=== PATIENT | male | born 1975 | race Two or more races ===

== ENCOUNTER 2024-06-25 04:16 | Inpatient (IN) | payer OTHER ==
[~2024-06-25] VITALS: Ht 193 cm; Wt 83.0 kg
[2024-06-25] MEDS ORDERED: VANCOMYCIN PER PHARMACY 0 MG IV SCH ×2 (04:45→06:45)
[2024-06-25] MEDS: ceFAZolin 1GM/50ML 50 ML IV ONE (04:45)
[2024-06-25] MEDS: SODIUM CHLORIDE 0.9% 1,000 ML IVB ONE (04:45)
--- NOTE | 2024-06-25 05:10 | DVH ---
CLINICAL INDICATION: pain / swelling TECHNIQUE: XY L FOOT 2 VIEW XRAY Comparison: None FINDINGS/IMPRESSION: : There is no evidence of acute fracture or dislocation. Soft tissues are unremarkable.
--- NOTE | 2024-06-25 05:14 | ED.PDOC ---
Musculoskeletal HPI Comments 48-year-old male came to emergency room for left foot swelling. Patient has history of diabetes, status post left knee surgery 2023. Since the surgery, he has been episodes of left foot swelling which spontaneously resolves. Yesterday, left foot swelling again, now with discoloration. Noted also non healing wound at the sole of his left foot. Swelling and pain would persist prompting check up. No fever noted. Chief Complaint: Lower Extremity Time Seen by MD: 05:13 Reviewed Notes: Nurses Notes Allergies: Coded Allergies: NO KNOWN ALLERGIES (Unverified , 06/25/24) Information Source: Patient Mode of Arrival: Ambulatory Location: Left Extremity Location: Foot Timing: Days Prehospital treatment: None Severity: Moderate Able to Move Extremity: Yes Bear Weight: Limited Pain: Moderate Hand Dominance: Right Mechanism: Spontaneous Circumstances: Spontaneous Onset of Symptoms: Spontaneous Symptoms: Swelling, Pain Associated signs and symptoms: Foot pain (left) Past Medical History PAST MEDICAL HISTORY: DM Surgical History (Other): Left knee surgery 2023 Family History Family History: Reviewed,noncontributory to illness Social History Smoker: Non-Smoker Alcohol: Denies ETOH Use Drugs: Denies Drug Use Lives In: Home Constitutional: denies: chills, diaphoresis, fatigue, fever, malaise, sweats, weakness, others EENTM: denies: blurred vision, double vision, ear bleeding, ear discharge, ear drainage, ear pain, ear ringing, eye pain, eye redness, hearing loss, mouth pain, mouth swelling, nasal discharge, nose bleeding, nose congestion, nose pain, photophobia, tearing, throat pain, throat swelling, voice changes, others Respiratory: denies: cough, hemoptysis, orthopnea, SOB at rest, shortness of breath, SOB with excertion, stridor, wheezing, others Cardiovascular: denies: chest pain, dizzy spells, diaphoresis, Dyspnea on exertion, edema, irregular heart beat, left arm pain, lightheadedness, palpitations, PND, syncope, others Gastrointestinal: denies: abdomen distended, abdominal pain, blood streaked bowels, constipated, diarrhea, dysphagia, difficulty swallowing, hematemesis, melena, nausea, poor appetite, poor fluid intake, rectal bleeding, rectal pain, vomiting, others Genitourinary: denies: burning, dysuria, flank pain, frequency, hematuria, incontinence, penile discharge, penile sore, pain, testicle pain, testicle swelling, urgency, others Neurological: denies: dizziness, fainting, headache, left sided numbness, left sided weakness, numbness, paresthesia, pre-existing deficit, right sided numbness, right sided weakness, seizure, speech problems, tingling, tremors, weakness, others Musculoskeletal: reports: others (Left foot swelling) Integumetry: reports: wounds (Sole of left foot); denies: bruises, change in color, change in hair/nails, dryness, laceration, lesions, lumps, rash, others Allergic/Immunocompromised: denies: Difficulty Healing, Frequent Infections, Hives, Itching, others Hematologic/Lymphatic: denies: anemia, blood clots, easy bleeding, easy bruising, swollen glands, others Endocrine: denies: excessive hunger, excessive sweating, excessive thirst, excessive urination, flushing, intolerance to cold, intolerance to heat, unexplained weight gain, unexplained weight loss, others Psychiatric: denies: anxiety, bipolar disorder, depression, hopeless, panic disorder, schizophrenia, sleepless, suicidal, others Physical Exam General Appearance: No Apparent Distress, Normal HEENT: Normal ENT Inspection, Pharynx Normal, TMs Normal Neck: Full Range of Motion, Non-Tender, Normal, Normal Inspection Respiratory: Chest Non-Tender, Lungs Clear, No Accessory Muscle Use, No Respiratory Distress, Normal Breath Sounds Cardiovascular: No Edema, No JVD, No Murmur, No Gallop, Normal Peripheral Pulses, Regular Rate/Rhythm Breast Exam: Deferred Gastrointestinal: No Organomegaly, Non Tender, No Pulsatile Mass, Normal Bowel Sounds, Soft Genitalia: Deferred Pelvic: Deferred Rectal: Deferred Extremities: No calf tenderness, Normal capillary refill, Normal inspection, Normal range of motion, Non-tender, No pedal edema Musculoskeletal : Apperance: Normal Neurologic: Alert, web pressman II-XII nml as Tested, No Motor Deficits, Normal Affect, Normal Mood, No Sensory Deficits Cerebellar Function: Normal Reflexes: Normal Skin: Dry, Normal Color, Warm Lymphatic: No Adenopathy Was a procedure done? Was a procedure done?: No Differential Diagnosis EXT Differential Diagnosis: Cellulitis, CHF, Deep Vein Thrombosis, Septic, Other (Diabetic foot) X-Ray, Labs, Meds, VS Vital Signs Date Time Temp Pulse Resp B/P (MAP) Pulse Ox O2 Delivery O2 Flow Rate FiO2 06/25/24 04:34 140 06/25/24 04:24 99.6 147 20 128/93 (105) 97 Lab Test 06/25/24 04:50 Range/Units White Blood Count 22.6 H 4.4-10.8 10^3/uL Red Blood Count 4.05 L 4.5-5.90 10^6/uL Hemoglobin 11.5 L 13.5-17.5 g/dL Hematocrit 34.1 L 41.0-53.0 % Mean Corpuscular Volume 84.1 80.0-100.0 fL Mean Corpuscular Hemoglobin 28.4 28.0-32.0 pg Mean Corpuscular Hemoglobin Concent 33.8 32.0-36.0 g/dL Red Cell Distribution Width 13.1 11.8-14.3 % Platelet Count 594 H 140-450 10^3/uL Mean Platelet Volume 7.4 6.9-10.8 fL Neutrophils (%) (Auto) 81.6 H 37.0-80.0 % Lymphocytes (%) (Auto) 9.1 L 10.0-50.0 % Monocytes (%) (Auto) 8.1 0.0-12.0 % Eosinophils (%) (Auto) 0.6 0.0-7.0 % Basophils (%) (Auto) 0.6 0.0-2.0 % Neutrophils # (Auto) 18.4 H 1.6-8.6 10 ^3/uL Lymphocytes # (Auto) 2.0 0.4-5.4 10 ^3/uL Monocytes # (Auto) 1.8 H 0-1.3 10 ^3/uL Eosinophils # (Auto) 0.1 0-0.8 10 ^3/uL Basophils # (Auto) 0.1 0-0.2 10 ^3/uL Nucleated Red Blood Cells 0.0 % Prothrombin Time Pending Prothrombin Time INR Pending Activated Partial Thromboplast Time Pending D-Dimer, Quantitative Pending Sodium Level Pending Potassium Level Pending Chloride Level Pending Carbon Dioxide Level Pending Anion Gap Pending Blood Urea Nitrogen Pending Creatinine Pending Glomerular Filtration Rate Calc Pending BUN/Creatinine Ratio Pending Serum Glucose Pending Lactic Acid Level Pending Calcium Level Pending Total Bilirubin Pending Aspartate Amino Transferase (AST) Pending Alanine Aminotransferase (ALT) Pending Alkaline Phosphatase Pending Total Protein Pending Albumin Pending Time of 1ST Reevaluation: 05:05 Reevaluation 1ST: Unchanged Time of 2ND Reevaluation: 05:35 Reevaluation 2ND: Unchanged Patient Education/Counseling: Diagnosis, Treatment Family Education/Counseling: No Family Present Departure 1 Departure Time of Disposition: 05:35 Impression: Primary Impression: Cellulitis of left foot Additional Impressions: Diabetic foot ulcer Type 2 diabetes mellitus Disposition: 09 ADMITTED INPATIENT Condition: Guarded Discharged With: Self Comments Left Lower Extremity Cellulitis with Diabetic Foot Ulcer Chief Complaint: Left foot and lower leg redness and swelling History of Present Illness: 48-year-old male with history of type 2 diabetes presents with worsening left foot and lower leg redness and swelling for the past 4 days. Patient reports having a diabetic foot ulcer on the sole of his left foot for approximately 2 months prior to the onset of current symptoms. The affected area has become progressively more swollen and erythematous. Physical Exam: Left foot and lower leg with erythema and swelling Diabetic ulcer present on sole of left foot Lab Results: WBC: 22.6 (Elevated) Hemoglobin: 11.5 Hematocrit: 34.1 Platelets: 594 Imaging and Other Relevant Results: X-ray Left Foot/Lower Leg: - Soft tissue swelling noted - No bony lesions or evidence of osteomyelitis Left Lower Extremity Ultrasound: - Pending at time of note completion - ordered to rule out DVT Medical Decision Making: Summary Statement: 48-year-old diabetic male presenting with left lower extremity cellulitis and underlying diabetic foot ulcer, with significantly elevated WBC concerning for severe infection. Problem List: 1. Left lower extremity cellulitis 2. Diabetic foot ulcer 3. Type 2 Diabetes Mellitus 4. Leukocytosis Differential Diagnosis: Cellulitis, Deep Vein Thrombosis, Osteomyelitis, Necrotizing Fasciitis, Infected Diabetic Foot Ulcer ED Course: Patient received IV fluids, IV Cefazolin and Vancomycin. Left lower extremity ultrasound ordered to rule out DVT. Decision made to admit for IV antibiotics and further management. Assessment and Plan: 1. Left Lower Extremity Cellulitis with Diabetic Foot Ulcer - Admit to hospital for IV antibiotics (Cefazolin and Vancomycin initiated in ED) - Monitor response to treatment - Wound care consultation - DVT ultrasound results pending 2. Type 2 Diabetes Mellitus - Continue home medications - Blood glucose monitoring during admission - Endocrinology consultation recommended Billing Information: ICD-10: L03.115 - Cellulitis of left lower limb ICD-10: E11.621 - Type 2 diabetes mellitus with foot ulcer ICD-10: E11.9 - Type 2 diabetes mellitus without complications Critical Care Note Critical Care Time?: Yes (35 min-critical care time only) Critical care comment: Total critical care time: Approximately 36 minutes Due to a high probability of clinically significant, life threatening deterioration, the patient required my highest level of preparedness to intervene emergently and I personally spent this critical care time directly and personally managing the patient. This critical care time included obtaining a history; examining the patient; pulse oximetry; ordering and review of studies; arranging urgent treatment with development of a management plan; evaluation of patient's response to treatment; frequent reassessment; and, discussions with other providers. This critical care time was performed to assess and manage the high probability of imminent, life-threatening deterioration that could result in multi-organ failure. It was exclusive of separately billable procedures and treating other patients. Stability Stability form required: No Heart Score Heart Score: Heart Score Response (Comments) Value History N/A 0 EKG N/A 0 Age N/A 0 Risk Factors N/A 0 Troponin N/A 0 Total 0 I personally scribed for EUNICE WASHINGTON MD ([email or web address]) on 06/25/24 at 05:14. Electronically submitted by David Mckinney ([facility]). EUNICE WASHINGTON MD Jun 25, 2024 05:14
--- NOTE | 2024-06-25 05:14 | DVH ---
EXAM: XR Left Tibia and Fibula, 2 Views CLINICAL INDICATION: pain / swelling TECHNIQUE: Frontal and lateral views of the left tibia and fibula. COMPARISON: None FINDINGS: BONES/JOINTS: See below. SOFT TISSUES: Soft tissue swelling without acute fracture. No radiopaque foreign body. OTHER FINDINGS: . IMPRESSION: 1. Soft tissue swelling without acute fracture. 2. If symptoms persist, further evaluation with CT is recommended.
[2024-06-25 05:15] LABS: Basophils # (auto) 0.1 10 ^3/uL (0-0.2); Eosinophils # (auto) 0.1 10 ^3/uL (0-0.8); Hemoglobin 11.5 g/dL (13.5-17.5)
[2024-06-25 05:18] LABS: Basophils % (auto) 0.6 % (0.0-2.0); Eosinophils % (auto) 0.6 % (0.0-7.0); Hematocrit 34.1 % (41.0-53.0); Lymphocytes % (auto) 9.1 % (10.0-50.0); Mean Corpuscular Hemoglobin 28.4 pg (28.0-32.0); Mean Corpuscular Hgb Conc. 33.8 g/dL (32.0-36.0); Mean Corpuscular Volume 84.1 fL (80.0-100.0); Monocytes # (auto) 1.8 10 ^3/uL (0-1.3); Monocytes % (auto) 8.1 % (0.0-12.0); Neutrophils # (auto) 18.4 10 ^3/uL (1.6-8.6); Neutrophils % (auto) 81.6 % (37.0-80.0); Platelet Count (auto) 594 10^3/uL (140-450); Red Blood Cells 4.05 10^6/uL (4.5-5.90); Red Cell Distribution Width 13.1 % (11.8-14.3); White Blood Cell 22.6 10^3/uL (4.4-10.8)
[2024-06-25 05:20] VITALS: PULSE 123; RESP 18; O2SAT 98
[2024-06-25 05:27] LABS: Alanine Aminotransferase 17 U/L (7-40); Albumin 4.4 g/dL (3.2-4.8); Anion Gap 13 (5-15); Aspartate Aminotransferase 13 U/L (13-40); BUN/Creatinine Ratio 10.7 (10.0-20.0); Bilirubin, Total 0.6 mg/dL (0.2-1.0); Calcium 9.9 mg/dL (8.7-10.4); Carbon Dioxide 25 mmol/L (20-31); Total Protein 7.6 g/dL (5.7-8.2)
[2024-06-25 05:42] LABS: Alkaline Phosphatase 126 U/L (46-116); Blood Urea Nitrogen 9 mg/dL (9-23); Chloride 94 mmol/L (98-107); Glucose 334 mg/dL (74-106); Potassium 3.2 mmol/L (3.5-5.1); Sodium 132 mmol/L (136-145)
[2024-06-25 05:44] LABS: INR 1.13 (0.9-1.15); Partial Thromboplastin Time 31.2 SEC (24.5-34.5); Prothrombin Time 11.8 sec (9.3-11.8)
[2024-06-25] MEDS ORDERED: HYDROcodone-ACET 5/325MG TAB PO PRN (06:45)
[2024-06-25] MEDS ORDERED: DEXTROSE (50%) 50ML SYRG IV PRN (06:45)
[2024-06-25] MEDS ORDERED: ONDANSETRON HCL 4 MG/2 ML VIAL IV PRN (06:45)
[2024-06-25] MEDS ORDERED: MORPHINE SULFATE INJ 2 MG/ml SYRG IV PRN (06:45)
[2024-06-25] MEDS ORDERED: ACETAMINOPHEN 325 MG TAB PO PRN (06:45)
--- NOTE | 2024-06-25 06:51 | DVH ---
EXAM: US Duplex Left Lower Extremity Veins CLINICAL INDICATION: LLE pain / swelling TECHNIQUE: Real-time duplex ultrasound scan of the left lower extremity veins integrating B-mode two -dimensional vascular structure, Doppler spectral analysis, color flow Doppler imaging and compressio n. COMPARISON: None FINDINGS: DEEP VEINS: Unremarkable. No DVT in the visualized common femoral, femoral, proximal deep femoral or popliteal veins. The veins demonstrate normal color flow, are normally compressible, with normal phasic flow and/or augmentation response. SUPERFICIAL VEINS: Unremarkable. No thrombus in the visualized great saphenous vein. SOFT TISSUES: No acute findings. No popliteal cyst. OTHER FINDINGS: . None. Small left knee joint effusion. IMPRESSION: No DVT.
--- NOTE | 2024-06-25 07:10 | DVHHP2 ---
History of Present Illness Reason for Visit: Left lower Extremity pain and swelling History of Present Illness Tyshawn Leong is a 48-year-old male with past medical history of hyperlipidemia, diabetes, and left knee surgery back in 2023 who presents to the ED with left lower extremity pain and swelling. Patient reports 2 flare-ups when in March of 2024 and 1 currently states that the pain is 10/10 stabbing and burning and is constant. Patient reports that he uses a cane or crutches to ambulate. He also states that he had a referral for Podiatry but has not seen 1 yet for his left ulcer on the sole of his foot. Patient denies any chest pain, shortness of breath, fever, chills, lightheadedness, weakness, dizziness, abdominal pain, nausea, vomiting, and diarrhea Cardiovascular: hyperipidemia Endocrine: Diabetes Past Surgical History: Other (A surgery 2023) Family History: None Smoke: No ALCOHOL: none Drugs: None Lives: with Family Domestic Violence: Neg Review of Systems Constitutional: Yes: Fever Musculoskeletal: leg pain Skin: Other (Erythematous and swelling left lower extremity) Allergies: Coded Allergies: NO KNOWN ALLERGIES (Unverified , 06/25/24) Medications Current Medications Medications Dose Ordered Sig/Padmini Route Start Time Stop Time Status Last Admin Dose Admin Vancomycin HCl 0 ml @ 0 mls/hr UD IV 06/25/24 04:45 UNV Exam Vital Signs Vital Signs Date Time Temp Pulse Resp B/P (MAP) Pulse Ox O2 Delivery O2 Flow Rate FiO2 06/25/24 05:20 123 18 98 Room Air* 0 21 06/25/24 05:15 98.1 164/100 (121) 98.1 General Appearance: Alert, Oriented X3, Cooperative, No acute distress HEENT: Atraumatic, PERRLA, EOMI, Mucous membr. moist/pink Respiratory: Clear to auscultation, Normal air movement Cardiovascular: Normal S1, Normal S2, No murmurs Abdominal: Normal bowel sounds, Soft, No tenderness, No hepatospenomegaly, No masses Neuro: Normal gait, Sensation intact Psych/Mental Status: Mental status NL, Mood NL Labs/Xrays Labs Test 06/25/24 04:50 Range/Units White Blood Count 22.6 H 4.4-10.8 10^3/uL Red Blood Count 4.05 L 4.5-5.90 10^6/uL Hemoglobin 11.5 L 13.5-17.5 g/dL Hematocrit 34.1 L 41.0-53.0 % Mean Corpuscular Volume 84.1 80.0-100.0 fL Mean Corpuscular Hemoglobin 28.4 28.0-32.0 pg Mean Corpuscular Hemoglobin Concent 33.8 32.0-36.0 g/dL Red Cell Distribution Width 13.1 11.8-14.3 % Platelet Count 594 H 140-450 10^3/uL Mean Platelet Volume 7.4 6.9-10.8 fL Neutrophils (%) (Auto) 81.6 H 37.0-80.0 % Lymphocytes (%) (Auto) 9.1 L 10.0-50.0 % Monocytes (%) (Auto) 8.1 0.0-12.0 % Eosinophils (%) (Auto) 0.6 0.0-7.0 % Basophils (%) (Auto) 0.6 0.0-2.0 % Neutrophils # (Auto) 18.4 H 1.6-8.6 10 ^3/uL Lymphocytes # (Auto) 2.0 0.4-5.4 10 ^3/uL Monocytes # (Auto) 1.8 H 0-1.3 10 ^3/uL Eosinophils # (Auto) 0.1 0-0.8 10 ^3/uL Basophils # (Auto) 0.1 0-0.2 10 ^3/uL Nucleated Red Blood Cells 0.0 % Prothrombin Time 11.8 9.3-11.8 sec Prothrombin Time INR 1.13 0.9-1.15 Activated Partial Thromboplast Time 31.2 24.5-34.5 SEC D-Dimer, Quantitative 2.25 H 0.0-0.49 mg/L FEU Sodium Level 132 L 136-145 mmol/L Potassium Level 3.2 L 3.5-5.1 mmol/L Chloride Level 94 L 98-107 mmol/L Carbon Dioxide Level 25 20-31 mmol/L Anion Gap 13 5-15 Blood Urea Nitrogen 9 9-23 mg/dL Creatinine 0.84 0.700-1.30 mg/dL Glomerular Filtration Rate Calc 109 >90 mL/min BUN/Creatinine Ratio 10.7 10.0-20.0 Serum Glucose 334 H 74-106 mg/dL Lactic Acid Level 1.4 0.4-2.0 mmol/L Calcium Level 9.9 8.7-10.4 mg/dL Total Bilirubin 0.6 0.2-1.0 mg/dL Aspartate Amino Transferase (AST) 13 13-40 U/L Alanine Aminotransferase (ALT) 17 7-40 U/L Alkaline Phosphatase 126 H 46-116 U/L Total Protein 7.6 5.7-8.2 g/dL Albumin 4.4 3.2-4.8 g/dL INDICATION: R/O PE COMPARISON: None TECHNIQUE: Multidetector spiral CTA of the chest was performed of the chest with intravenous contrast. PULMONARY ANGIOGRAPHY PROTOCOL was utilized using a bolus- tracking technique centered on the main pulmonary artery. Axial, coronal and sagittal multiplanar and MIP reformats were performed. CONTRAST: Type of contrast: Omni 350 Contrast injected: 83 ml Radiation dose : Chest: CTDI volume is 23.68 mGy. Dose-length product is 521.18 mGy*cm The dose indicators for CT are the volume computed Tomography (CT) dose Index (CTDIvol) and the dose Length product (DLP), and are measured in units of mGy and mGy-cm, respectively. These indicators are not patient dose, but values generated from the CT scanner acquisition factors. The report includes radiation exposure data for exposures received during this examination. Findings: Pulmonary artery: No pulmonary embolism Lower neck: Normal thyroid. Esophagus is dilated and filled with fluid and debris Lungs: Subcentimeter ground-glass opacity right upper lobe. Atelectasis and scarring in the lung bases. Heart/Vascular Structures: Normal heart size. No pericardial effusion. Lymph Nodes: No adenopathy Pleura: No pleural effusion or significant pneumothorax. Musculoskeletal: No acute osseous abnormality. Soft tissues: Normal. Upper abdomen: Limited portions of the upper abdomen are unremarkable. IMPRESSION: 1. No pulmonary embolism. 2. Sub cm ground-glass opacity right upper lobe is nonspecific. Attention on follow-up is recommended. Dilated fluid and debris-filled esophagus suggesting connective tissue disorder. Clinical correlation and continued follow-up is recommended. This can be further evaluated with esophagram. ORDERING PHYSICIAN: BEBE TANNER HOSE WRAPPER PROCEDURE(s): LTBCT - CT L TIB FIB WO CONTRAST REASON: PAIN ORDER NUMBER(s): [id number], ACCESSION NUMBER(s): [id number] CLINICAL INFORMATION: 48 years old, Male; PAIN. TECHNIQUE: Axial CT images of the left lower leg were obtained without IV contrast. Coronal and sagittal reformatted images were obtained, reviewed, and stored. All CT scans at this medical facility are performed using dose modulation techniques as appropriate to a performed exam including the following: Automated exposure control was utilized; adjustment of the MA and/or KV according to patient size; and use of iterative reconstruction technique. CTDIvol = 7.89 mGy DLP = 485.37 mGy-cm COMPARISON: Same day radiographs. FINDINGS: Dense of acute fracture or dislocation. No significant arthritic changes are seen. Moderate subcutaneous edema in the distal aspect of the left lower leg and around the ankle hindfoot. IMPRESSION: 1. Dense of acute fracture. 2. Moderate subcutaneous edema of the distal lower leg, ankle, and hindfoot. ORDERING PHYSICIAN: EUNICE WASHINGTON MD PROCEDURE(s): LTBFB - L TIB FIB XRAY REASON: pain / swelling ORDER NUMBER(s): [id number], ACCESSION NUMBER(s): [id number] EXAM: XR Left Tibia and Fibula, 2 Views CLINICAL INDICATION: pain / swelling TECHNIQUE: Frontal and lateral views of the left tibia and fibula. COMPARISON: None FINDINGS: BONES/JOINTS: See below. SOFT TISSUES: Soft tissue swelling without acute fracture. No radiopaque foreign body. OTHER FINDINGS: . IMPRESSION: 1. Soft tissue swelling without acute fracture. 2. If symptoms persist, further evaluation with CT is recommended. CLINICAL INDICATION: pain / swelling TECHNIQUE: XY L FOOT 2 VIEW XRAY Comparison: None FINDINGS/IMPRESSION: : There is no evidence of acute fracture or dislocation. Soft tissues are unremarkable. EXAM: US Duplex Left Lower Extremity Veins CLINICAL INDICATION: LLE pain / swelling TECHNIQUE: Real-time duplex ultrasound scan of the left lower extremity veins integrating B-mode two-dimensional vascular structure, Doppler spectral analysis, color flow Doppler imaging and compression. COMPARISON: None FINDINGS: DEEP VEINS: Unremarkable. No DVT in the visualized common femoral, femoral, proximal deep femoral or popliteal veins. The veins demonstrate normal color flow, are normally compressible, with normal phasic flow and/or augmentation response. SUPERFICIAL VEINS: Unremarkable. No thrombus in the visualized great saphenous vein. SOFT TISSUES: No acute findings. No popliteal cyst. OTHER FINDINGS: . None. Small left knee joint effusion. IMPRESSION: No DVT. Assessment/Plan Assessment/Plan Assessment Leukocytosis likely due to left lower extremity cellulitis ?Diabetic ulcer Rule out sepsis Anemia Hyponatremia Hypokalemia Diabetes type 2 uncontrolled Elevated D-dimer rule out PE History of hyperlipidemia History of left knee surgery in 2023 Plan Admit to [facility] Podiatry consult Replete lytes IV fluids IV antibiotics-vancomycin + cefazolin IV fluids Antiemetics Pain management Lovenox CT lower extremity X-ray left tib-fib Ultrasound left lower extremity venous X-ray left foot Lactic level Blood cultures PT/PTT Hemoglobin A1c ISS and Accu-Cheks Diet Home medications reconciled Antipyretics Plan discussed with: Patient My Orders Orders - BEBE TANNER Procedure Category Date Status Time Left Lower Extremity CT 06/25/24 Logged W/O Con 06:43 Admit ADMIT 06/25/24 Verified 06:45 Allergies ANDREW 06/25/24 Verified 06:45 Code Status CODE 06/25/24 Verified 06:45 Hydrocodone-Acet PHA 06/25/24 Verified 5/325mg Tab ([place] 06:45 Ondansetron Hcl PHA 06/25/24 Verified (Zofran) 06:45 Complete Blood Count LAB 06/26/24 Verified 04:00 Comprehensive LAB 06/26/24 Verified Metabolic Panel 04:00 Cardiac DIET 06/25/24 Verified Diet-2gna,Lofat,Lochol Breakfast Pt Request For Service PT 06/25/24 Verified 06:45 Acetaminophen Tablet PHA 06/25/24 Verified (Tylenol Tablet) 06:45 Morphine Sulfate PHA 06/25/24 Verified Injection 06:45 Glucose Blood PHA 06/25/24 Verified (Accu-Chek Comfort 07:00 Mild Sliding Scale PHA 06/25/24 Verified 07:00 Dextrose 50% Syringe PHA 06/25/24 Verified 06:45 Date of Service: Jun 25, 2024 Billing Provider: BEBE TANNER Common Visit Codes: [id number] INP/OBS CARE (HIGH) BEBE TANNER Jun 25, 2024 07:10
[2024-06-25 07:38] VITALS: PULSE 120; RESP 19; O2SAT 96
[2024-06-25] MEDS: VANCOMYCIN 1GM/250mL NS or D5W KIT IV ONE ×2 (07:46)
[2024-06-25] MEDS: SODIUM CHLORIDE 0.9% 1,000 ML IV ONE (07:51)
[2024-06-25] MEDS: VANCOMYCIN 1GM/250ML KIT 250 ML IV SCH (07:51)
[2024-06-25] MEDS: POTASSIUM CHL 20 Meq TABLET PO ONE (07:51)
[2024-06-25] MEDS: ACCU-CHEK COMFORT CURVE STRIP VI SCH (07:51)
--- NOTE | 2024-06-25 08:20 | DVH ---
CLINICAL INFORMATION: 48 years old, Male; PAIN. TECHNIQUE: Axial CT images of the left lower leg were obtained without IV contrast. Coronal and sagit radha reformatted images were obtained, reviewed, and stored. All CT scans at this medical facility are performed using dose modulation techniques as appropriate to a performed exam including the follo wing: Automated exposure control was utilized; adjustment of the MA and/or KV according to patient si ze; and use of iterative reconstruction technique. CTDIvol = 7.89 mGy DLP = 485.37 mGy-cm COMPARISON: Same day radiographs. FINDINGS: Dense of acute fracture or dislocation. No significant arthritic changes are seen. Moderate subcutaneous edema in the distal aspect of the left lower leg and around the ankle hindfoot. IMPRESSION: 1. Dense of acute fracture. 2. Moderate subcutaneous edema of the distal lower leg, ankle, and hindfoot.
[2024-06-25] MEDS: InsuLIN REG 1unit/0.01ml Soln (100units/ml) SC SCH (08:59)
--- NOTE | 2024-06-25 09:59 | DVHPN2 ---
Subjective Continues to complain of left leg swelling and pain Reviewed: Care Plan, H&P, Labs, Medications, Previous Orders, Radiology Changes from previous H/P or p: No Changes Objective Vitals Vital Signs Date Time Temp Pulse Resp B/P (MAP) Pulse Ox O2 Delivery O2 Flow Rate FiO2 06/25/24 09:00 111 20 151/101 (118) 92 06/25/24 07:38 Room Air* 0 21 06/25/24 05:15 98.1 98.1 General Appearance: Alert, Oriented X3, Cooperative, No acute distress HEENT: Atraumatic Lungs: Clear to auscultation, Normal air movement Cardiovascular: Regular rate, Normal S1, Normal S2 Abdomen: Normal bowel sounds, Soft, No tenderness Skin: Other (Redness/tenderness/swelling of left leg/ankle/foot; around 1 cm in diameter unstageable ulcer on the sole of left foot) Psych/Mental Status: Mental status NL, Mood NL Medications Current Medications Medications Dose Ordered Sig/Padmini Route Start Time Stop Time Status Last Admin Dose Admin Acetaminophen/ Hydrocodone Bitart 1 tab Q4HP PRN PO 06/25/24 06:45 Ondansetron HCl 4 mg Q4HP PRN IV 06/25/24 06:45 Acetaminophen 650 mg Q6HP PRN PO 06/25/24 06:45 Morphine Sulfate 2 mg Q4HPRN PRN IV 06/25/24 06:45 Diagnostic Test (Pha) 1 strip ACHS 06/25/24 07:00 06/25/24 07:51 1 STRIP Insulin Human Regular ACHS SC 06/25/24 07:00 06/25/24 08:59 4 UNITS Dextrose 50 ml UD PRN IV 06/25/24 06:45 Vancomycin HCl 0 ml @ 0 mls/hr UD IV 06/25/24 06:45 Cefazolin Sodium 50 ml @ 100 mls/hr Q8HR IV 06/25/24 14:00 Enoxaparin Sodium 80 mg Q12HR SC 06/25/24 10:00 Atorvastatin Calcium 40 mg HS PO 06/25/24 22:00 Aspirin 81 mg DAILY PO 06/25/24 10:00 Vancomycin HCl 250 ml @ 250 mls/hr Q1H IV 06/25/24 08:00 06/25/24 09:59 06/25/24 07:51 250 MLS/HR Vancomycin HCl 100 ml @ 100 mls/hr Q8H IV 06/25/24 20:00 Laboratory Results Laboratory Tests 06/25/24 04:50 Chemistry Test 06/25/24 04:50 Albumin 4.4 g/dL (3.2-4.8) Calcium Level 9.9 mg/dL (8.7-10.4) Total Protein 7.6 g/dL (5.7-8.2) Coagulation Test 06/25/24 04:50 Prothrombin Time 11.8 sec (9.3-11.8) Prothrombin Time INR 1.13 (0.9-1.15) Activated Partial Thromboplast Time 31.2 SEC (24.5-34.5) D-Dimer, Quantitative 2.25 mg/L FEU (0.0-0.49) H LFT Test 06/25/24 04:50 Alanine Aminotransferase (ALT) 17 U/L (7-40) Alkaline Phosphatase 126 U/L (46-116) H Aspartate Amino Transferase (AST) 13 U/L (13-40) Total Bilirubin 0.6 mg/dL (0.2-1.0) HgA1c, TSH Test 06/25/24 04:50 Hemoglobin A1c 12.7 % A1C (<5.7) H Labs and/or images reviewed: Labs reviewed by me, Image(s) reviewed by me Assessment/Plan Assessment/Plan A 48-year-old male patient; multiple comorbidities; who presented to the emergency department with left leg swelling/redness/tenderness. #Sepsis due to left leg/ankle/foot cellulitis with diabetic foot ulcer; consulted Podiatry and Wound Care; continue broad-spectrum IV antibiotics; continue pain management as indicated; continue monitoring #Leukocytosis thrombocytosis due to sepsis; continue monitoring #Left leg/ankle/foot cellulitis with diabetic foot ulcer; reviewed the available imaging studies; management as above; continue monitoring #Normocytic anemia; most likely inflammatory; no signs/symptoms of active bleeding; continue monitoring #Uncontrolled diabetes mellitus; continue insulin sliding scale with hypoglycemia protocol; adjust dosing as indicated; continue monitoring #Mixed dyslipidemia; continue home medications of aspirin and statin; continue monitoring #Hypokalemia; unclear etiology; to replace electrolytes as indicated; continue monitoring #Elevated D-dimer; DVTs ruled out; ordered chest angiogram to rule out PE; continue monitoring #Sub cm ground-glass opacity right upper lobe; to follow up as outpatient #Dilated fluid and debris-filled esophagus suggesting connective tissue disorder; also could be due to diabetic gastroparesis; to follow up as outpatient Goals of care discussed with the patient for 20 minutes; full code Late Entry. This medical document was created using an electronic medical record system with computerized dictation system. Although this document has been carefully reviewed, there might still be some phonetic and typographical errors. These areas are purely typographical due to imperfections of the software programs, and do not reflect any compromise in the patient's medical care. Plan discussed with: Patient, Other (Nurse) Date of Service: Jun 25, 2024 Billing Provider: MARIA ELENA ALMEIDA MD Common Visit Codes: [id number] INP/OBS CARE(HIGH) Secondary Visit Codes: [id number] CARE PLAN 30 MINUTES (20 minutes) MARIA ELENA ALMEIDA MD Jun 25, 2024 09:59
[2024-06-25] MEDS: POTASSIUM EFFERVESENT TAB 25 MEQ PO ONE (10:00)
[2024-06-25] MEDS: POTASSIUM CHLORIDE 40 MEQ, LIDOCAINE 1% (LOCAL ANESTH.) 4 ML in SODIUM CHL 0.9% 250 ML IV ONE (10:00)
[2024-06-25] MEDS: ASPirin 81 mg TAB PO SCH (10:38)
[2024-06-25] MEDS: ENOXAPARIN SOD 100 MG/1 ML SYRINGE SC SCH (10:39)
[2024-06-25] MEDS: IOHEXOL 350 MG/ML 100ML IJ ONE (10:49)
--- NOTE | 2024-06-25 11:48 | DVH ---
CTA Chest with intravenous contrast INDICATION: R/O PE COMPARISON: None TECHNIQUE: Multidetector spiral CTA of the chest was performed of the chest with intravenous contrast . PULMONARY ANGIOGRAPHY PROTOCOL was utilized using a bolus-tracking technique centered on the main p ulmonary artery. Axial, coronal and sagittal multiplanar and MIP reformats were performed. CONTRAST: Type of contrast: Omni 350 Contrast injected: 83 ml Radiation dose : Chest: CTDI volume is 23.68 mGy. Dose-length product is 521.18 mGy*cm The dose indicators for CT are the volume computed Tomography (CT) dose Index (CTDIvol) and the dose Length product (DLP), and are measured in units of mGy and mGy-cm, respectively. These indicators are not patient dose, but values generated from the CT scanner acquisition factors. The report includes radiation exposure data for exposures received during this examination. Findings: Pulmonary artery: No pulmonary embolism Lower neck: Normal thyroid. Esophagus is dilated and filled with fluid and debris Lungs: Subcentimeter ground-glass opacity right upper lobe. Atelectasis and scarring in the lung base s. Heart/Vascular Structures: Normal heart size. No pericardial effusion. Lymph Nodes: No adenopathy Pleura: No pleural effusion or significant pneumothorax. Musculoskeletal: No acute osseous abnormality. Soft tissues: Normal. Upper abdomen: Limited portions of the upper abdomen are unremarkable. IMPRESSION: 1. No pulmonary embolism. 2. Sub cm ground-glass opacity right upper lobe is nonspecific. Attention on follow-up is recommended . Dilated fluid and debris-filled esophagus suggesting connective tissue disorder. Clinical correlat ion and continued follow-up is recommended. This can be further evaluated with esophagram. HS:Y
--- NOTE | 2024-06-25 14:52 | DVHINCON2 ---
Date Seen: Jun 25, 2024 Reason for Consultation left foot wound History of Present Illness Tyshawn Leong is a 48-year-old male with past medical history of hyperlipidemia, diabetes, and left knee surgery back in 2023 who presents to the ED with left lower extremity pain and swelling. Patient reports 2 flare-ups when in March of 2024 and 1 currently states that the pain is 10/10 stabbing and burning and is constant. Patient reports that he uses a cane or crutches to ambulate. He also states that he had a referral for Podiatry but has not seen 1 yet for his left ulcer on the sole of his foot. Patient denies any chest pain, shortness of breath, fever, chills, lightheadedness, weakness, dizziness, abdominal pain, nausea, vomiting, and diarrhea Past Medical History see H&P Past Surgical History see H&P Allergies: Coded Allergies: NO KNOWN ALLERGIES (Unverified , 06/25/24) Current Medications Current Medications Medications (Trade) Dose Ordered Sig/Padmini Route PRN Reason Start Time Stop Time Status Last Admin Vancomycin HCl 0 ml @ 0 mls/hr UD IV 06/25/24 04:45 06/25/24 07:26 DC Acetaminophen/ Hydrocodone Bitart ([place] 5/325MG Tab) 1 tab Q4HP PRN PO MODERATE PAIN (4-6 PAIN SCALE) 06/25/24 06:45 Ondansetron HCl (Zofran) 4 mg Q4HP PRN IV NAUSEA / VOMITING 06/25/24 06:45 Acetaminophen (Tylenol Tablet) 650 mg Q6HP PRN PO PAIN SCALE 1-3 OR TEMP>100.4 06/25/24 06:45 Morphine Sulfate 2 mg Q4HPRN PRN IV SEVERE PAIN (7-10 PAIN SCALE) 06/25/24 06:45 Diagnostic Test (Pha) (Accu-Chek Comfort Curve T) 1 strip ACHS 06/25/24 07:00 06/25/24 07:51 Insulin Human Regular (InsuLIN R) ACHS SC 06/25/24 07:00 06/25/24 08:59 Dextrose 50 ml UD PRN IV Blood Sugar LESS THAN 60 06/25/24 06:45 Vancomycin HCl 0 ml @ 0 mls/hr UD IV 06/25/24 06:45 Cefazolin Sodium 50 ml @ 100 mls/hr Q8HR IV 06/25/24 14:00 Enoxaparin Sodium (Lovenox) 80 mg Q12HR SC 06/25/24 10:00 06/25/24 10:39 Atorvastatin Calcium (Lipitor) 40 mg HS PO 06/25/24 22:00 Aspirin 81 mg DAILY PO 06/25/24 10:00 06/25/24 10:38 Vancomycin HCl 250 ml @ 250 mls/hr Q1H IV 06/25/24 08:00 06/25/24 10:03 DC 06/25/24 12:49 Vancomycin HCl 100 ml @ 100 mls/hr Q8H IV 06/25/24 20:00 Vital Signs Vital Signs Date Time Temp Pulse Resp B/P (MAP) Pulse Ox O2 Delivery O2 Flow Rate FiO2 06/25/24 12:18 108 19 111/68 (82) 92 06/25/24 07:38 Room Air* 0 21 06/25/24 05:15 98.1 98.1 Physical Exam DERMATOLOGIC EXAM: - Skin is dry and cool to the touch dry bilaterally. - Nails 1-5 of the bilateral foot are thickened, discolored, dystrophic, and tender to palpate with subungual debris - Hair loss noted to bilateral feet Wound #1: Location: Left foot lateral plantar Measurements: Length 0.5 cm x width 0.5 cm x depth 0.5 cm. Wound margins: Hyperkeratotic. Wound base: Full thickness. General Appearance: Healthy and bleeding. Probes to Bone: No Purulent drainage: No Serous drainage: No Erythema: Absent VASCULAR EXAM: - DP and PT pulses are palpable bilaterally. - FOUNDER / CEO is brisk to all digits. - Feet are cool to touch compared to lower legs bilaterally. NEUROLOGIC EXAM: - Normal light touch sensation to the superficial peroneal, deep peroneal, sural, saphenous, and tibial nerve branches. - Protective sensation is diminished as tested with a 5.07 10g [place] bilaterally. MUSCULOSKELETAL EXAM: - No gross deformities - Muscle strength is 5/5 and active motion is pain-free and symmetrical bilaterally - No pain or crepitation with passive range of motion bilaterally to all major pedal joints Labs/Diagnostic Data Labs Test 06/25/24 12:53 06/25/24 04:50 Range/Units POC Glucose 281 H 70-106 mg/dl White Blood Count 22.6 H 4.4-10.8 10^3/uL Red Blood Count 4.05 L 4.5-5.90 10^6/uL Hemoglobin 11.5 L 13.5-17.5 g/dL Hematocrit 34.1 L 41.0-53.0 % Mean Corpuscular Volume 84.1 80.0-100.0 fL Mean Corpuscular Hemoglobin 28.4 28.0-32.0 pg Mean Corpuscular Hemoglobin Concent 33.8 32.0-36.0 g/dL Red Cell Distribution Width 13.1 11.8-14.3 % Platelet Count 594 H 140-450 10^3/uL Mean Platelet Volume 7.4 6.9-10.8 fL Neutrophils (%) (Auto) 81.6 H 37.0-80.0 % Lymphocytes (%) (Auto) 9.1 L 10.0-50.0 % Monocytes (%) (Auto) 8.1 0.0-12.0 % Eosinophils (%) (Auto) 0.6 0.0-7.0 % Basophils (%) (Auto) 0.6 0.0-2.0 % Neutrophils # (Auto) 18.4 H 1.6-8.6 10 ^3/uL Lymphocytes # (Auto) 2.0 0.4-5.4 10 ^3/uL Monocytes # (Auto) 1.8 H 0-1.3 10 ^3/uL Eosinophils # (Auto) 0.1 0-0.8 10 ^3/uL Basophils # (Auto) 0.1 0-0.2 10 ^3/uL Nucleated Red Blood Cells 0.0 % Prothrombin Time 11.8 9.3-11.8 sec Prothrombin Time INR 1.13 0.9-1.15 Activated Partial Thromboplast Time 31.2 24.5-34.5 SEC D-Dimer, Quantitative 2.25 H 0.0-0.49 mg/L FEU Sodium Level 132 L 136-145 mmol/L Potassium Level 3.2 L 3.5-5.1 mmol/L Chloride Level 94 L 98-107 mmol/L Carbon Dioxide Level 25 20-31 mmol/L Anion Gap 13 5-15 Blood Urea Nitrogen 9 9-23 mg/dL Creatinine 0.84 0.700-1.30 mg/dL Glomerular Filtration Rate Calc 109 >90 mL/min BUN/Creatinine Ratio 10.7 10.0-20.0 Serum Glucose 334 H 74-106 mg/dL Hemoglobin A1c 12.7 H <5.7 % A1C Lactic Acid Level 1.4 0.4-2.0 mmol/L Calcium Level 9.9 8.7-10.4 mg/dL Total Bilirubin 0.6 0.2-1.0 mg/dL Aspartate Amino Transferase (AST) 13 13-40 U/L Alanine Aminotransferase (ALT) 17 7-40 U/L Alkaline Phosphatase 126 H 46-116 U/L Total Protein 7.6 5.7-8.2 g/dL Albumin 4.4 3.2-4.8 g/dL Problems(with codes): (1) Type 2 diabetes mellitus (2) Diabetic foot ulcer (3) Cellulitis of left foot Plan/Recommendation ASSESSMENT: Patient is a 48 year old male seen in the ER for a left foot plantar ulcer PLAN: - The patients chart was reviewed, clinical findings were discussed with the patient, the etiologies of the conditions were discussed in detail, and a treatment plan was agreed to at this time, with both oral and written instructions provided. - reviewed advanced imaging - with the patient having recurrent ulcer on the left plantar foot recommend we do a debridement with osteotomy on Friday - patient will be NPO at midnight Friday - patient will be able to weightbear as tolerated with a postoperative shoe after surgery - continue IV antibiotics for the cellulitis All questions were answered and concerns addressed to the patient's satisfaction. The patient was given the phone number to the clinic and was told how to make contact with the clinic should any concerns or questions arise. Patient understands that if any questions or concerns arise prior to the next appointment, we should be contacted immediately. FOLLOW-UP: Continue to follow while inpatient Plan discussed with: Patient Date of Service: Jun 25, 2024 Billing Provider: LIN WILKES DPM Common Visit Codes: CONSULT ONLY Consultation Codes: [id number] CONSULT <80MIN LIN WILKES DPM Jun 25, 2024 14:52
[2024-06-25] MEDS: ceFAZolin 1GM/50ML 50 ML IV SCH (15:13)
[2024-06-25 16:52] VITALS: PULSE 108; RESP 18; O2SAT 94
[2024-06-25 17:00] VITALS: BP 144/95; PULSE 108; RESP 20; TEMP 98.1; O2SAT 94
[2024-06-25] MEDS ORDERED: ASPI1TAB20 PO (17:28)
[2024-06-25] MEDS ORDERED: ATOR-507 PO (17:28)
[2024-06-25] MEDS ORDERED: GLIM4TAB42 PO (17:28)
[2024-06-25] MEDS ORDERED: METF-372 PO (17:28)
[2024-06-25] MEDS ORDERED: INSLANTI SC (17:28)
[2024-06-25 20:00] VITALS: RESP 16
[2024-06-25 21:00] VITALS: BP 130/89; PULSE 98; RESP 18; TEMP 100; O2SAT 100
[2024-06-25] MEDS: ATORVASTATIN 20 MG TAB PO SCH (22:07)
[2024-06-25] MEDS: VANCOMYCIN 750MG KIT 100 ML IV SCH (22:12)
[2024-06-26 05:00] VITALS: BP 141/94; PULSE 100; RESP 17; TEMP 98.3; O2SAT 98
[2024-06-26 06:26] LABS: Eosinophils # (auto) 0.2 10 ^3/uL (0-0.8); Eosinophils % (auto) 1.4 % (0.0-7.0)
[2024-06-26 06:29] LABS: Basophils # (auto) 0.1 10 ^3/uL (0-0.2); Basophils % (auto) 0.4 % (0.0-2.0); Hematocrit 33.2 % (41.0-53.0); Hemoglobin 11.4 g/dL (13.5-17.5); Lymphocytes % (auto) 11.9 % (10.0-50.0); Mean Corpuscular Hemoglobin 28.5 pg (28.0-32.0); Mean Corpuscular Hgb Conc. 34.3 g/dL (32.0-36.0); Mean Corpuscular Volume 83.2 fL (80.0-100.0); Monocytes # (auto) 1.3 10 ^3/uL (0-1.3); Neutrophils # (auto) 13.1 10 ^3/uL (1.6-8.6); Neutrophils % (auto) 78.3 % (37.0-80.0); Nucleated Red Blood Cells % 0.1 %; Platelet Count (auto) 541 10^3/uL (140-450); Red Cell Distribution Width 13.2 % (11.8-14.3); White Blood Cell 16.7 10^3/uL (4.4-10.8)
[2024-06-26 06:52] LABS: Alanine Aminotransferase 14 U/L (7-40); Anion Gap 11 (5-15); BUN/Creatinine Ratio 9.1 (10.0-20.0); Carbon Dioxide 27 mmol/L (20-31); Chloride 98 mmol/L (98-107); Magnesium 1.8 mg/dL (1.6-2.6); Sodium 136 mmol/L (136-145); Total Protein 6.7 g/dL (5.7-8.2)
[2024-06-26 06:53] LABS: Albumin 3.8 g/dL (3.2-4.8)
[2024-06-26 06:54] LABS: Bilirubin, Total 0.5 mg/dL (0.2-1.0)
[2024-06-26 06:55] LABS: Alkaline Phosphatase 120 U/L (46-116); Blood Urea Nitrogen 7 mg/dL (9-23); Glucose 198 mg/dL (74-106); Potassium 3.1 mmol/L (3.5-5.1)
[2024-06-26 06:56] LABS: Aspartate Aminotransferase 9 U/L (13-40)
[2024-06-26 09:00] VITALS: BP 136/90; PULSE 98; RESP 16; TEMP 98.7; O2SAT 97
[2024-06-26 13:00] VITALS: BP 115/81; PULSE 96; RESP 18; TEMP 98.7; O2SAT 98
[2024-06-26] MEDS: POTASSIUM EFFERVESENT TAB 25 MEQ PO ONE (14:23)
[2024-06-26 17:00] VITALS: BP 130/89; PULSE 100; RESP 18; TEMP 98.9; O2SAT 96
--- NOTE | 2024-06-26 18:46 | DVHPN2 ---
Subjective Decreasing left leg swelling and pain Reviewed: Care Plan, H&P, Labs, Medications, Previous Orders, Radiology, Other (Consultation) Changes from previous H/P or p: Changes Objective Vitals Vital Signs Date Time Temp Pulse Resp B/P (MAP) Pulse Ox O2 Delivery O2 Flow Rate FiO2 06/26/24 17:00 98.9 100 18 130/89 (103) 96 98.9 06/25/24 20:00 Room Air* 0 21 Intake/Output Intake and Output 06/26/24 07:00 Intake Total 3243 ml Balance 3243 ml Intake Oral 3243 ml # Voids 2 # Bowel Movements 1 General Appearance: Alert, Oriented X3, Cooperative, No acute distress HEENT: Atraumatic Lungs: Clear to auscultation, Normal air movement Cardiovascular: Regular rate, Normal S1, Normal S2 Abdomen: Normal bowel sounds, Soft, No tenderness Skin: Other (Redness/tenderness/swelling of left leg/ankle/foot; around 1 cm in diameter unstageable ulcer on the sole of left foot) Psych/Mental Status: Mental status NL, Mood NL Medications Current Medications Medications Dose Ordered Sig/Padmini Route Start Time Stop Time Status Last Admin Dose Admin Acetaminophen/ Hydrocodone Bitart 1 tab Q4HP PRN PO 06/25/24 06:45 Ondansetron HCl 4 mg Q4HP PRN IV 06/25/24 06:45 Acetaminophen 650 mg Q6HP PRN PO 06/25/24 06:45 Morphine Sulfate 2 mg Q4HPRN PRN IV 06/25/24 06:45 Diagnostic Test (Pha) 1 strip ACHS 06/25/24 07:00 06/26/24 12:09 1 STRIP Insulin Human Regular ACHS SC 06/25/24 07:00 06/26/24 12:10 6 UNITS Dextrose 50 ml UD PRN IV 06/25/24 06:45 Vancomycin HCl 0 ml @ 0 mls/hr UD IV 06/25/24 06:45 Cefazolin Sodium 50 ml @ 100 mls/hr Q8HR IV 06/25/24 14:00 06/26/24 14:23 100 MLS/HR Atorvastatin Calcium 40 mg HS PO 06/25/24 22:00 06/25/24 22:07 40 MG Aspirin 81 mg DAILY PO 06/25/24 10:00 06/26/24 10:15 81 MG Vancomycin HCl 100 ml @ 100 mls/hr Q8H IV 06/25/24 20:00 06/26/24 12:08 100 MLS/HR Enoxaparin Sodium 80 mg Q12HR SC 06/26/24 22:00 Laboratory Results Laboratory Tests 06/26/24 06:00 Chemistry Test 06/26/24 06:00 Albumin 3.8 g/dL (3.2-4.8) Calcium Level 9.0 mg/dL (8.7-10.4) Magnesium Level 1.8 mg/dL (1.6-2.6) Total Protein 6.7 g/dL (5.7-8.2) LFT Test 06/26/24 06:00 Alanine Aminotransferase (ALT) 14 U/L (7-40) Alkaline Phosphatase 120 U/L (46-116) H Aspartate Amino Transferase (AST) 9 U/L (13-40) L Total Bilirubin 0.5 mg/dL (0.2-1.0) Microbiology Microbiology Date/Time Source Procedure Growth Status 06/25/24 04:50 Blood Blood Culture - Preliminary NO GROWTH AFTER 24 HOURS OF INCUBATION. Resulted Labs and/or images reviewed: Labs reviewed by me, Image(s) reviewed by me Assessment/Plan Assessment/Plan A 48-year-old male patient; multiple comorbidities; who presented to the emergency department with left leg swelling/redness/tenderness. #Sepsis due to left leg/ankle/foot cellulitis with diabetic foot ulcer; Podiatry and Wound Care are following; debridement with osteotomy planned on Friday; continue broad-spectrum IV antibiotics; continue pain management as indicated; continue monitoring #Leukocytosis thrombocytosis due to sepsis; continue monitoring #Left leg/ankle/foot cellulitis with diabetic foot ulcer; reviewed the available imaging studies; management as above; continue monitoring #Normocytic anemia; most likely inflammatory; no signs/symptoms of active bleeding; continue monitoring #Uncontrolled diabetes mellitus with hemoglobin A1c of 12.7%; continue insulin sliding scale with hypoglycemia protocol; adjust dosing as indicated; continue monitoring #Mixed dyslipidemia; continue home medications of aspirin and statin; continue monitoring #Hypokalemia; unclear etiology; to replace electrolytes as indicated; continue monitoring #Elevated D-dimer; DVTs and PEs ruled out; continue monitoring #Sub cm ground-glass opacity right upper lobe; to follow up as outpatient #Dilated fluid and debris-filled esophagus suggesting connective tissue disorder; also could be due to diabetic gastroparesis; to follow up as outpatient Late Entry. This medical document was created using an electronic medical record system with computerized dictation system. Although this document has been carefully reviewed, there might still be some phonetic and typographical errors. These areas are purely typographical due to imperfections of the software programs, and do not reflect any compromise in the patient's medical care. Plan discussed with: Patient, Other (Nurse) Date of Service: Jun 26, 2024 Billing Provider: MARIA ELENA ALMEIDA MD Common Visit Codes: [id number] INP/OBS CARE(HIGH) MARIA ELENA ALMEIDA MD Jun 26, 2024 18:46
[2024-06-26 21:00] VITALS: BP 125/85; PULSE 104; RESP 19; TEMP 100.1; O2SAT 96
[2024-06-26] MEDS: ENOXAPARIN SOD 80 MG/0.8ML SYRINGE SC SCH (21:54)
[2024-06-27] VITALS (7 sets, daily range): BP systolic 114–127; BP diastolic 76–88; PULSE 94–110; RESP 17–19; TEMP 98.1–99.7; O2SAT 96–100
[2024-06-27 07:04] LABS: Basophils # (auto) 0.1 10 ^3/uL (0-0.2); Basophils % (auto) 0.7 % (0.0-2.0); Eosinophils # (auto) 0.3 10 ^3/uL (0-0.8); Eosinophils % (auto) 2.6 % (0.0-7.0); Hematocrit 33.2 % (41.0-53.0); Hemoglobin 11.5 g/dL (13.5-17.5); Lymphocytes # (auto) 2.3 10 ^3/uL (0.4-5.4); Lymphocytes % (auto) 18.2 % (10.0-50.0); Mean Corpuscular Hemoglobin 29.1 pg (28.0-32.0); Mean Corpuscular Hgb Conc. 34.6 g/dL (32.0-36.0); Monocytes # (auto) 1.5 10 ^3/uL (0-1.3); Monocytes % (auto) 11.5 % (0.0-12.0); Neutrophils # (auto) 8.5 10 ^3/uL (1.6-8.6); Nucleated Red Blood Cells % 0.1 %; Platelet Count (auto) 624 10^3/uL (140-450); Red Blood Cells 3.95 10^6/uL (4.5-5.90); Red Cell Distribution Width 13.3 % (11.8-14.3); White Blood Cell 12.7 10^3/uL (4.4-10.8)
[2024-06-27 07:39] LABS: Alanine Aminotransferase 15 U/L (7-40); Albumin 3.8 g/dL (3.2-4.8); Alkaline Phosphatase 110 U/L (46-116); Anion Gap 11 (5-15); BUN/Creatinine Ratio 14.3 (10.0-20.0); Bilirubin, Total 0.4 mg/dL (0.2-1.0); Blood Urea Nitrogen 11 mg/dL (9-23); Calcium 9.5 mg/dL (8.7-10.4); Carbon Dioxide 29 mmol/L (20-31); Potassium 3.9 mmol/L (3.5-5.1); Sodium 137 mmol/L (136-145); Total Protein 7.3 g/dL (5.7-8.2)
[2024-06-27 07:41] LABS: Aspartate Aminotransferase 9 U/L (13-40); Chloride 97 mmol/L (98-107); Glucose 213 mg/dL (74-106)
[2024-06-27] MEDS: VANCOMYCIN 1GM/250ML KIT 250 ML IV SCH (11:55)
--- NOTE | 2024-06-27 12:26 | DVHPN2 ---
Subjective Decreasing left leg swelling and pain Reviewed: Care Plan, H&P, Labs, Medications, Previous Orders, Radiology, Other (Consultation) Changes from previous H/P or p: Changes Objective Vitals Vital Signs Date Time Temp Pulse Resp B/P (MAP) Pulse Ox O2 Delivery O2 Flow Rate FiO2 06/27/24 09:00 98.1 109 17 127/87 (100) 96 98.1 06/27/24 08:00 Room Air* 0 21 Intake/Output Intake and Output 06/27/24 07:00 Intake Total 2120 ml Balance 2120 ml Intake Oral 1920 ml IV Total 200 ml # Voids 3 General Appearance: Alert, Oriented X3, Cooperative, No acute distress HEENT: Atraumatic Lungs: Clear to auscultation, Normal air movement Cardiovascular: Regular rate, Normal S1, Normal S2 Abdomen: Normal bowel sounds, Soft, No tenderness Skin: Other (Redness/tenderness/swelling of left leg/ankle/foot; around 1 cm in diameter unstageable ulcer on the sole of left foot) Psych/Mental Status: Mental status NL, Mood NL Medications Current Medications Medications Dose Ordered Sig/Padmini Route Start Time Stop Time Status Last Admin Dose Admin Acetaminophen/ Hydrocodone Bitart 1 tab Q4HP PRN PO 06/25/24 06:45 Ondansetron HCl 4 mg Q4HP PRN IV 06/25/24 06:45 Acetaminophen 650 mg Q6HP PRN PO 06/25/24 06:45 Morphine Sulfate 2 mg Q4HPRN PRN IV 06/25/24 06:45 Diagnostic Test (Pha) 1 strip ACHS 06/25/24 07:00 06/27/24 11:54 1 STRIP Insulin Human Regular ACHS SC 06/25/24 07:00 06/27/24 12:02 8 UNITS Dextrose 50 ml UD PRN IV 06/25/24 06:45 Vancomycin HCl 0 ml @ 0 mls/hr UD IV 06/25/24 06:45 Cefazolin Sodium 50 ml @ 100 mls/hr Q8HR IV 06/25/24 14:00 06/27/24 06:06 100 MLS/HR Atorvastatin Calcium 40 mg HS PO 06/25/24 22:00 06/26/24 21:54 40 MG Aspirin 81 mg DAILY PO 06/25/24 10:00 06/27/24 09:23 81 MG Enoxaparin Sodium 80 mg Q12HR SC 06/26/24 22:00 06/27/24 09:23 80 MG Vancomycin HCl 250 ml @ 200 mls/hr Q8H IV 06/27/24 12:00 06/27/24 11:55 200 MLS/HR Laboratory Results Laboratory Tests 06/27/24 06:02 Chemistry Test 06/27/24 06:02 Albumin 3.8 g/dL (3.2-4.8) Calcium Level 9.5 mg/dL (8.7-10.4) Total Protein 7.3 g/dL (5.7-8.2) LFT Test 06/27/24 06:02 Alanine Aminotransferase (ALT) 15 U/L (7-40) Alkaline Phosphatase 110 U/L (46-116) Aspartate Amino Transferase (AST) 9 U/L (13-40) L Total Bilirubin 0.4 mg/dL (0.2-1.0) Microbiology Microbiology Date/Time Source Procedure Growth Status 06/25/24 04:50 Blood Blood Culture - Preliminary NO GROWTH AFTER 48 HOURS OF INCUBATION. Resulted Labs and/or images reviewed: Labs reviewed by me, Image(s) reviewed by me Assessment/Plan Assessment/Plan A 48-year-old male patient; multiple comorbidities; who presented to the emergency department with left leg swelling/redness/tenderness. #Sepsis due to left leg/ankle/foot cellulitis with diabetic foot ulcer; Podiatry and Wound Care are following; debridement with osteotomy planned on Friday; NPO after midnight; continue broad-spectrum IV antibiotics; continue pain management as indicated; continue monitoring #Leukocytosis and thrombocytosis due to sepsis; continue monitoring #Left leg/ankle/foot cellulitis with diabetic foot ulcer; reviewed the available imaging studies; management as above; continue monitoring #Normocytic anemia; most likely inflammatory; no signs/symptoms of active bleeding; continue monitoring #Uncontrolled diabetes mellitus with hemoglobin A1c of 12.7%; continue insulin sliding scale with hypoglycemia protocol; adjust dosing as indicated; continue monitoring #Mixed dyslipidemia; continue home medications of aspirin and statin; continue monitoring #Hypokalemia; unclear etiology; to replace electrolytes as indicated; continue monitoring #Elevated D-dimer; DVTs and PEs ruled out; continue monitoring #Sub cm ground-glass opacity right upper lobe; to follow up as outpatient #Dilated fluid and debris-filled esophagus suggesting connective tissue disorder; also could be due to diabetic gastroparesis; to follow up as outpatient Late Entry. This medical document was created using an electronic medical record system with computerized dictation system. Although this document has been carefully reviewed, there might still be some phonetic and typographical errors. These areas are purely typographical due to imperfections of the software programs, and do not reflect any compromise in the patient's medical care. Plan discussed with: Patient, Other (Nurse) My Orders Orders - MARIA ELENA ALMEIDA MD Procedure Category Date Status Time Complete Blood Count LAB 06/28/24 Verified 05:00 Complete Blood Count LAB 06/29/24 Verified 05:00 Complete Blood Count LAB 06/30/24 Verified 05:00 Complete Blood Count LAB 07/01/24 Verified 05:00 Comprehensive LAB 06/28/24 Verified Metabolic Panel 04:00 Communication Order ORDERS 06/27/24 Transmitted 09:00 Npo After Midnight DIET 06/28/24 Transmitted Breakfast Date of Service: Jun 27, 2024 Billing Provider: MARIA ELENA ALMEIDA MD Common Visit Codes: [id number] INP/OBS CARE(HIGH) MARIA ELENA ALMEIDA MD Jun 27, 2024 12:26
[2024-06-28] VITALS (7 sets, daily range): BP systolic 105–134; BP diastolic 69–90; PULSE 92–101; RESP 16–18; TEMP 98–99; O2SAT 97–100
[2024-06-28 07:42] LABS: Basophils # (auto) 0.1 10 ^3/uL (0-0.2); Eosinophils # (auto) 0.4 10 ^3/uL (0-0.8); Hemoglobin 11.5 g/dL (13.5-17.5); Lymphocytes # (auto) 1.8 10 ^3/uL (0.4-5.4); Lymphocytes % (auto) 15.8 % (10.0-50.0); White Blood Cell 11.5 10^3/uL (4.4-10.8)
[2024-06-28 07:45] LABS: Basophils % (auto) 0.5 % (0.0-2.0); Eosinophils % (auto) 3.1 % (0.0-7.0); Hematocrit 35.4 % (41.0-53.0); Mean Corpuscular Hemoglobin 27.7 pg (28.0-32.0); Mean Corpuscular Hgb Conc. 32.3 g/dL (32.0-36.0); Mean Corpuscular Volume 85.8 fL (80.0-100.0); Monocytes # (auto) 1.3 10 ^3/uL (0-1.3); Monocytes % (auto) 11.6 % (0.0-12.0); Red Blood Cells 4.13 10^6/uL (4.5-5.90)
[2024-06-28 07:53] LABS: Platelet Count (auto) 707 10^3/uL (140-450)
[2024-06-28 08:00] LABS: Alanine Aminotransferase 13 U/L (7-40); Albumin 3.9 g/dL (3.2-4.8); Alkaline Phosphatase 110 U/L (46-116); Anion Gap 7 (5-15); BUN/Creatinine Ratio 10.3 (10.0-20.0); Bilirubin, Total 0.4 mg/dL (0.2-1.0); Blood Urea Nitrogen 10 mg/dL (9-23); Calcium 9.6 mg/dL (8.7-10.4); Carbon Dioxide 29 mmol/L (20-31); Chloride 98 mmol/L (98-107); Potassium 4.7 mmol/L (3.5-5.1); Total Protein 7.5 g/dL (5.7-8.2)
[2024-06-28 08:03] LABS: Aspartate Aminotransferase < 8 U/L (13-40); Glucose 231 mg/dL (74-106); Sodium 134 mmol/L (136-145)
--- NOTE | 2024-06-28 11:31 | DVHPN2 ---
Subjective Leong, Tyshawn Dunlap is a 48-year-old male with past medical history of hyperlipidemia, diabetes, and left knee surgery back in 2023 who presents to the ED with left lower extremity pain and swelling. Patient reports 2 flare-ups when in March of 2024 and 1 currently states that the pain is 10/10 stabbing and burning and is constant. Patient reports that he uses a cane or crutches to ambulate. He also states that he had a referral for Podiatry but has not seen 1 yet for his left ulcer on the sole of his foot. Patient denies any chest pain, shortness of breath, fever, chills, lightheadedness, weakness, dizziness, abdominal pain, nausea, vomiting, and diarrhea Reviewed: Care Plan, H&P, Labs, Medications, Previous Orders, Radiology, Other (Consultation) Changes from previous H/P or p: No Changes Objective Vitals Vital Signs Date Time Temp Pulse Resp B/P (MAP) Pulse Ox O2 Delivery O2 Flow Rate FiO2 06/28/24 08:49 98.9 92 16 134/90 (105) 97 98.9 06/27/24 20:00 Room Air* 0 21 Intake/Output Intake and Output 06/28/24 07:00 Intake Total 1450 ml Balance 1450 ml Intake Oral 600 ml IV Total 850 ml # Voids 3 Exam DERMATOLOGIC EXAM: - Skin is dry and cool to the touch dry bilaterally. - Nails 1-5 of the bilateral foot are thickened, discolored, dystrophic, and tender to palpate with subungual debris - Hair loss noted to bilateral feet Wound #1: Location: Left foot lateral plantar Measurements: Length 0.5 cm x width 0.5 cm x depth 0.5 cm. Wound margins: Hyperkeratotic. Wound base: Full thickness. General Appearance: Healthy and bleeding. Probes to Bone: No Purulent drainage: No Serous drainage: No Erythema: Absent VASCULAR EXAM: - DP and PT pulses are palpable bilaterally. - PHYSICIAN PRESIDENT is brisk to all digits. - Feet are cool to touch compared to lower legs bilaterally. NEUROLOGIC EXAM: - Normal light touch sensation to the superficial peroneal, deep peroneal, sural, saphenous, and tibial nerve branches. - Protective sensation is diminished as tested with a 5.07 10g [place]oren bilaterally. MUSCULOSKELETAL EXAM: - No gross deformities - Muscle strength is 5/5 and active motion is pain-free and symmetrical bilaterally - No pain or crepitation with passive range of motion bilaterally to all major pedal joints General Appearance: Alert, Oriented X3, Cooperative, No acute distress HEENT: Atraumatic Lungs: Clear to auscultation, Normal air movement Cardiovascular: Regular rate, Normal S1, Normal S2 Abdomen: Normal bowel sounds, Soft, No tenderness Skin: Other (Redness/tenderness/swelling of left leg/ankle/foot; around 1 cm in diameter unstageable ulcer on the sole of left foot) Psych/Mental Status: Mental status NL, Mood NL Medications Current Medications Medications Dose Ordered Sig/Padmini Route Start Time Stop Time Status Last Admin Dose Admin Acetaminophen/ Hydrocodone Bitart 1 tab Q4HP PRN PO 06/25/24 06:45 Ondansetron HCl 4 mg Q4HP PRN IV 06/25/24 06:45 Acetaminophen 650 mg Q6HP PRN PO 06/25/24 06:45 Morphine Sulfate 2 mg Q4HPRN PRN IV 06/25/24 06:45 Diagnostic Test (Pha) 1 strip ACHS 06/25/24 07:00 06/28/24 06:39 1 STRIP Insulin Human Regular ACHS SC 06/25/24 07:00 06/28/24 06:39 4 UNITS Dextrose 50 ml UD PRN IV 06/25/24 06:45 Vancomycin HCl 0 ml @ 0 mls/hr UD IV 06/25/24 06:45 Cefazolin Sodium 50 ml @ 100 mls/hr Q8HR IV 06/25/24 14:00 06/28/24 04:50 100 MLS/HR Atorvastatin Calcium 40 mg HS PO 06/25/24 22:00 06/27/24 22:31 40 MG Aspirin 81 mg DAILY PO 06/25/24 10:00 06/28/24 10:08 81 MG Enoxaparin Sodium 80 mg Q12HR SC 06/26/24 22:00 06/27/24 22:31 80 MG Vancomycin HCl 250 ml @ 200 mls/hr Q8H IV 06/27/24 12:00 06/28/24 03:32 200 MLS/HR Laboratory Results Laboratory Tests 06/28/24 06:16 Chemistry Test 06/28/24 06:16 Albumin 3.9 g/dL (3.2-4.8) Calcium Level 9.6 mg/dL (8.7-10.4) Total Protein 7.5 g/dL (5.7-8.2) LFT Test 06/28/24 06:16 Alanine Aminotransferase (ALT) 13 U/L (7-40) Alkaline Phosphatase 110 U/L (46-116) Aspartate Amino Transferase (AST) < 8 U/L (13-40) L Total Bilirubin 0.4 mg/dL (0.2-1.0) Microbiology Microbiology Date/Time Source Procedure Growth Status 06/25/24 04:50 Blood Blood Culture - Preliminary NO GROWTH AFTER 72 HOURS OF INCUBATION. Resulted Assessment/Plan Assessment/Plan ASSESSMENT: Patient is a 48 year old male seen in the ER for a left foot plantar ulcer PLAN: - The patients chart was reviewed, clinical findings were discussed with the patient, the etiologies of the conditions were discussed in detail, and a treatment plan was agreed to at this time, with both oral and written instructions provided. - reviewed advanced imaging - reviewed patient's lab - with the patient having recurrent ulcer on the left plantar foot recommend we do a debridement with osteotomy today - patient NPO since midnight last night - patient will be able to weightbear as tolerated with a postoperative shoe after surgery - continue IV antibiotics for the cellulitis All questions were answered and concerns addressed to the patient's satisfaction. The patient was given the phone number to the clinic and was told how to make contact with the clinic should any concerns or questions arise. Patient understands that if any questions or concerns arise prior to the next appointment, we should be contacted immediately. FOLLOW-UP: Continue to follow while inpatient Plan discussed with: Patient Problem List: (1) Type 2 diabetes mellitus (2) Diabetic foot ulcer (3) Cellulitis of left foot Date of Service: Jun 28, 2024 Billing Provider: LIN WILKES DPM Common Visit Codes: [id number] INP/OBS CARE(MOD) LIN WILKES DPM Jun 28, 2024 11:31
[2024-06-28] MEDS ORDERED: LIDOCAINE 1% INJ PF 5ML AMP ONE (11:47)
[2024-06-28] MEDS ORDERED: DexAMETHasone SOD PHOS 10MG/1ML VIAL INJ ONE (11:47)
[2024-06-28] MEDS ORDERED: ONDANSETRON HCL 4 MG/2 ML VIAL ONE (11:47)
[2024-06-28] MEDS ORDERED: KETOROLAC TROMETH 30 MG/ML 1ML VIAL ONE (11:47)
[2024-06-28] MEDS ORDERED: GLYCOPYRROLATE 0.2 MG/ML 1ML VIAL ONE (11:47)
[2024-06-28] MEDS ORDERED: PROPOFOL 10 MG/ML 20 ML IV ONE ×2 (11:47→12:03)
[2024-06-28] MEDS ORDERED: LIDOCAINE 2% (LOCAL ANESTH.) PF 5ml SDV ONE (12:00)
[2024-06-28] MEDS ORDERED: fentaNYL CITRATE 100 MCG/2 ML VL IV PRN (12:15)
[2024-06-28] MEDS ORDERED: NALOXONE HCL 0.4 MG/ML VIAL IV PRN (12:15)
[2024-06-28] MEDS ORDERED: FLUMAZENIL 0.1 MG/ML INJ 10ML MDV IV PRN (12:15)
[2024-06-28] MEDS ORDERED: ePHEDrine SULFATE 50 MG/ML AMP IV PRN (12:15)
[2024-06-28] MEDS ORDERED: HYDROmorphone HCL 2 MG/ML VL/or syr IV PRN (12:15)
[2024-06-28] MEDS ORDERED: ONDANSETRON HCL 4 MG/2 ML VIAL IV PRN (12:15)
[2024-06-28] MEDS ORDERED: hydrALAZINE HCL 20 MG/ML VL IV PRN (12:15)
--- NOTE | 2024-06-28 12:24 | DVHOP2 ---
Operative Report - 2 Report Details Date: 06/28/24 Preop Diagnosis: 1. Left foot diabetic ulcer 2. Left foot metatarsalgia 3. Left foot neuropathy 4. Left foot cellulitis Postop Diagnosis: Same as preop Surgeon: Lin Wilkes MD Anesthesiologist: See anesthesia Anesthesia: Mac Consent: The patient was informed of the risks and benefits of the procedure. These include but are not limited to complications of anesthesia, postoperative infection, incomplete relief of symptoms, recurrence of symptoms, damage to blood vessels, nerves and tendons, deep venous thrombosis, pulmonary embolism and possible need for repeat surgery in the future. Complications: None Estimated Blood Loss: Minimal Fluids: See anesthesia Findings: Consistent with the diagnosis Indications for Surgery: Recurrent diabetic ulcer with cellulitis Name of Procedure Performed 1. Left foot debridement (08238) 2. Left foot Yoko osteotomy (90995) Procedure Details Procedure Details: PRE-PROCEDURE INFORMATION: In the pre-op holding area, the extremity to be operated on was clearly marked and the patient verified correct laterality of the marking. The patient was transferred to the OR table and placed in a supine position. A timeout was performed in which identification of the correct patient, procedure, location, and materials was done. The _ foot and leg were prepped and draped in normal sterile fashion. The foot and leg were exsanguinated and the _ tourniquet was inflated to 300 mmHg. DESCRIPTION OF PROCEDURE: Attention was directed to the left lateral fifth metatarsal head where a stab incision was made. This incision was deepened through blunt and sharp dissection. Care was taken to avoid damage to n eurovascular structures throughout dissection. The incision was carried to the level of the fifth metatarsal head. Using an MIS bur, an osteotomy was made across the neck of the metatarsal head. Using a 15. Blade, debridement was performed down to the level of muscle of the plantar wound. The MIS incision was then closed with 2-0 nylon. All surgical wounds were irrigated copiously with saline and closed in layers with the aforementioned suture material. A dry sterile dressing was placed on the surgical extremity. The patient was placed in a postop shoe POSTOPERATIVE INFORMATION: The patient tolerated the above noted procedure and anesthesia well and was transferred to the PACU with vital signs stable, and vascular status intact with capillary refill intact to all digits. Postoperative instructions reviewed in detail with the patient with written instructions provided. Patient can return to the floor and continue antibiotics. Patient will be discharged home on 2 weeks of p.o. antibiotics. Patient can weightbear as tolerated in a postoperative shoe Condition Good Disposition Still a Patient LIN WILKES DPM Jun 28, 2024 12:24
[2024-06-28] MEDS: VANCOMYCIN HCL 1000 MG VL ONE (15:05)
[2024-06-28] MEDS: LIDOCAINE 1% HCL (LOCAL ANESTH.) INJ 20ML MDV ONE (15:05)
--- NOTE | 2024-06-28 15:17 | DVHPN2 ---
Reviewed: Care Plan, H&P, Labs, Medications, Previous Orders, Radiology, Other (Consultation) Changes from previous H/P or p: No Changes Objective Vitals Vital Signs Date Time Temp Pulse Resp B/P (MAP) Pulse Ox O2 Delivery O2 Flow Rate FiO2 06/28/24 12:38 90 12 114/82 (93) 95 06/28/24 12:08 97.0 97.0 06/28/24 12:08 Room Air 0 06/28/24 08:00 21 Intake/Output Intake and Output 06/28/24 07:00 Intake Total 1450 ml Balance 1450 ml Intake Oral 600 ml IV Total 850 ml # Voids 3 General Appearance: Alert, Oriented X3, Cooperative, No acute distress HEENT: Atraumatic Lungs: Clear to auscultation, Normal air movement Cardiovascular: Regular rate, Normal S1, Normal S2 Abdomen: Normal bowel sounds, Soft, No tenderness Skin: Other (Redness/tenderness/swelling of left leg/ankle/foot; around 1 cm in diameter unstageable ulcer on the sole of left foot) Psych/Mental Status: Mental status NL, Mood NL Medications Current Medications Medications Dose Ordered Sig/Padmini Route Start Time Stop Time Status Last Admin Dose Admin Acetaminophen/ Hydrocodone Bitart 1 tab Q4HP PRN PO 06/25/24 06:45 Ondansetron HCl 4 mg Q4HP PRN IV 06/25/24 06:45 Acetaminophen 650 mg Q6HP PRN PO 06/25/24 06:45 Morphine Sulfate 2 mg Q4HPRN PRN IV 06/25/24 06:45 Diagnostic Test (Pha) 1 strip ACHS 06/25/24 07:00 06/28/24 06:39 1 STRIP Insulin Human Regular ACHS SC 06/25/24 07:00 06/28/24 06:39 4 UNITS Dextrose 50 ml UD PRN IV 06/25/24 06:45 Vancomycin HCl 0 ml @ 0 mls/hr UD IV 06/25/24 06:45 Cefazolin Sodium 50 ml @ 100 mls/hr Q8HR IV 06/25/24 14:00 06/28/24 14:25 100 MLS/HR Atorvastatin Calcium 40 mg HS PO 06/25/24 22:00 06/27/24 22:31 40 MG Aspirin 81 mg DAILY PO 06/25/24 10:00 06/28/24 10:08 81 MG Enoxaparin Sodium 80 mg Q12HR SC 06/26/24 22:00 06/27/24 22:31 80 MG Vancomycin HCl 250 ml @ 250 mls/hr Q8H IV 06/28/24 16:00 Laboratory Results Laboratory Tests 06/28/24 06:16 Chemistry Test 06/28/24 06:16 Albumin 3.9 g/dL (3.2-4.8) Calcium Level 9.6 mg/dL (8.7-10.4) Total Protein 7.5 g/dL (5.7-8.2) LFT Test 06/28/24 06:16 Alanine Aminotransferase (ALT) 13 U/L (7-40) Alkaline Phosphatase 110 U/L (46-116) Aspartate Amino Transferase (AST) < 8 U/L (13-40) L Total Bilirubin 0.4 mg/dL (0.2-1.0) Microbiology Microbiology Date/Time Source Procedure Growth Status 06/25/24 04:50 Blood Blood Culture - Preliminary NO GROWTH AFTER 72 HOURS OF INCUBATION. Resulted Assessment/Plan Assessment/Plan A 48-year-old male patient; multiple comorbidities; who presented to the emergency department with left leg swelling/redness/tenderness. #Sepsis due to left leg/ankle/foot cellulitis with diabetic foot ulcer; Podiatry and Wound Care are following; debridement with osteotomy planned today Continue IV abx #Leukocytosis and thrombocytosis due to sepsis; continue monitoring #Left leg/ankle/foot cellulitis with diabetic foot ulcer; reviewed the available imaging studies; management as above; continue monitoring #Normocytic anemia; most likely inflammatory; no signs/symptoms of active bleeding; continue monitoring #Uncontrolled diabetes mellitus with hemoglobin A1c of 12.7%; continue insulin sliding scale with hypoglycemia protocol; adjust dosing as indicated; continue monitoring #Mixed dyslipidemia; continue home medications of aspirin and statin; continue monitoring #Hypokalemia; unclear etiology; to replace electrolytes as indicated; continue monitoring #Elevated D-dimer; DVTs and PEs ruled out; continue monitoring #Sub cm ground-glass opacity right upper lobe; to follow up as outpatient #Dilated fluid and debris-filled esophagus suggesting connective tissue disorder; also could be due to diabetic gastroparesis; to follow up as outpatient Plan discussed with: Patient Date of Service: Jun 28, 2024 Billing Provider: ANDREINA ESTEVEZ MD Common Visit Codes: [id number] INP/OBS CARE(HIGH) ANDREINA ESTEVEZ MD Jun 28, 2024 15:17
[2024-06-28] MEDS: VANCOMYCIN 1GM/250ML KIT 250 ML IV SCH (16:51)
[2024-06-29 01:00] VITALS: BP 179/82; PULSE 98; RESP 18; TEMP 98.1; O2SAT 96
[2024-06-29 05:00] VITALS: BP 131/88; PULSE 88; RESP 18; TEMP 97.8; O2SAT 97
[2024-06-29 06:38] LABS: Basophils % (auto) 0.4 % (0.0-2.0); Eosinophils # (auto) 0 10 ^3/uL (0-0.8); Eosinophils % (auto) 0.3 % (0.0-7.0); Hemoglobin 10.8 g/dL (13.5-17.5); Lymphocytes # (auto) 1.9 10 ^3/uL (0.4-5.4); Monocytes # (auto) 1.1 10 ^3/uL (0-1.3); Red Blood Cells 3.81 10^6/uL (4.5-5.90); White Blood Cell 11.6 10^3/uL (4.4-10.8)
[2024-06-29 06:39] LABS: Basophils # (auto) 0 10 ^3/uL (0-0.2); Hematocrit 31.9 % (41.0-53.0); Mean Corpuscular Hemoglobin 28.3 pg (28.0-32.0); Mean Corpuscular Hgb Conc. 33.8 g/dL (32.0-36.0); Mean Corpuscular Volume 83.8 fL (80.0-100.0); Monocytes % (auto) 9.6 % (0.0-12.0); Neutrophils # (auto) 8.6 10 ^3/uL (1.6-8.6); Neutrophils % (auto) 73.7 % (37.0-80.0); Platelet Count (auto) 680 10^3/uL (140-450); Red Cell Distribution Width 12.9 % (11.8-14.3)
[2024-06-29 08:30] VITALS: BP 132/80; PULSE 77; RESP 12; TEMP 97.5; O2SAT 95
[2024-06-29] MEDS ORDERED: AUG875T PO (12:19)
[2024-06-29 13:38] VITALS: TEMP 36.4
--- NOTE | 2024-06-29 14:24 | DVHDS2 ---
Discharge Summary Date of Admission Jun 25, 2024 at 06:45 Date of Discharge: Jun 29, 2024 Labs/Diagnostic Data: Laboratory Results Test 06/29/24 11:13 06/29/24 05:43 06/28/24 13:40 06/28/24 06:16 POC Glucose 438 mg/dl (70-106) White Blood Count 11.6 10^3/uL (4.4-10.8) Red Blood Count 3.81 10^6/uL (4.5-5.90) Hemoglobin 10.8 g/dL (13.5-17.5) Hematocrit 31.9 % (41.0-53.0) Mean Corpuscular Volume 83.8 fL (80.0-100.0) Mean Corpuscular Hemoglobin 28.3 pg (28.0-32.0) Mean Corpuscular Hemoglobin Concent 33.8 g/dL (32.0-36.0) Red Cell Distribution Width 12.9 % (11.8-14.3) Platelet Count 680 10^3/uL (140-450) Mean Platelet Volume 7.4 fL (6.9-10.8) Neutrophils (%) (Auto) 73.7 % (37.0-80.0) Lymphocytes (%) (Auto) 16.0 % (10.0-50.0) Monocytes (%) (Auto) 9.6 % (0.0-12.0) Eosinophils (%) (Auto) 0.3 % (0.0-7.0) Basophils (%) (Auto) 0.4 % (0.0-2.0) Neutrophils # (Auto) 8.6 10 ^3/uL (1.6-8.6) Lymphocytes # (Auto) 1.9 10 ^3/uL (0.4-5.4) Monocytes # (Auto) 1.1 10 ^3/uL (0-1.3) Eosinophils # (Auto) 0 10 ^3/uL (0-0.8) Basophils # (Auto) 0 10 ^3/uL (0-0.2) Nucleated Red Blood Cells 0.0 % Vancomycin Level Trough 11.2 ug/mL (5-10) Sodium Level 134 mmol/L (136-145) Potassium Level 4.7 mmol/L (3.5-5.1) Chloride Level 98 mmol/L (98-107) Carbon Dioxide Level 29 mmol/L (20-31) Anion Gap 7 (5-15) Blood Urea Nitrogen 10 mg/dL (9-23) Creatinine 0.97 mg/dL (0.700-1.30) Glomerular Filtration Rate Calc 98 mL/min (>90) BUN/Creatinine Ratio 10.3 (10.0-20.0) Serum Glucose 231 mg/dL (74-106) Calcium Level 9.6 mg/dL (8.7-10.4) Total Bilirubin 0.4 mg/dL (0.2-1.0) Aspartate Amino Transferase (AST) < 8 U/L (13-40) Alanine Aminotransferase (ALT) 13 U/L (7-40) Alkaline Phosphatase 110 U/L (46-116) Total Protein 7.5 g/dL (5.7-8.2) Albumin 3.9 g/dL (3.2-4.8) Test 06/26/24 06:00 06/25/24 04:50 Magnesium Level 1.8 mg/dL (1.6-2.6) Prothrombin Time 11.8 sec (9.3-11.8) Prothrombin Time INR 1.13 (0.9-1.15) Activated Partial Thromboplast Time 31.2 SEC (24.5-34.5) D-Dimer, Quantitative 2.25 mg/L FEU (0.0-0.49) Hemoglobin A1c 12.7 % A1C (<5.7) Lactic Acid Level 1.4 mmol/L (0.4-2.0) Other Laboratory Tests 06/29/24 05:43 06/28/24 06:16 Brief Hx & Hospital Course: Tyshawn Leong is a 48-year-old male with past medical history of hyperlipidemia, diabetes, and left knee surgery back in 2023 who presents to the ED with left lower extremity pain and swelling. Patient reports 2 flare-ups when in March of 2024 and 1 currently states that the pain is 10/10 stabbing and burning and is constant. Patient reports that he uses a cane or crutches to ambulate. He also states that he had a referral for Podiatry but has not seen 1 yet for his left ulcer on the sole of his foot. Patient denies any chest pain, shortness of breath, fever, chills, lightheadedness, weakness, dizziness, abdominal pain, nausea, vomiting, and diarrhea had diabetic infected wound on left foot, had surgery per podiatry with debridement Sepsis resolved and was sent home on oral abx Condition at Discharge: Good Final Diagnosis/Problems List sepsis due to infected diabetic foot ulcer Anemia Hyponatremia Hypokalemia Diabetes type 2 uncontrolled with hyperglycemia Elevated D-dimer, PE ruled History of hyperlipidemia History of left knee surgery in 2023 Discharge Disposition: Home Discharge Instruct/Medications Diet: Consistent carbohydrate Activity: No Restrictions, As Tolerated Follow Up/Referral: pcp in 7 days and podiatry Medications: augmentin same home meds Discharge Statement: "Patient was advised to return to the ER or call 911 if any headaches, dizziness, shortness of breath, chest pain, abdominal pain, bleeding, fevers, or worsening of medical condition. Patient was counseled about treatment plan, medications, possible side effects, patientverbalized understanding. All questions were answered to the best of my ability. This discharge took greater then 30 minutes in planning, reviewing documentation, counseling the patient, and discussing with other team members." ASSESSMENT ASSESSMENT Assessment diabetic foot infection Date of Service: Jun 29, 2024 Billing Provider: ANDREINA ESTEVEZ MD Common Visit Codes: [id number] DISCH DAY >30min ANDREINA ESTEVEZ MD Jun 29, 2024 14:24
--- NOTE | 2024-06-29 14:31 | ECG ---
[facility] Test Date: 2024-06-25 Test Time: 04:34:42 Pat Name: ALEXANDRA COLIN Department: ER Room: 0245 A Gender: M Councilperson: [facility] : 1975 Requested By: EMERGENCY EMERGENCY Order Number: [id number] Reading MD: Adam Red Measurements Intervals [place] Rate: 140 P: 76 TX: 88 QRS: 83 QRSD: 88 T: 29 QT: 294 QTc: 449 Interpretive Statements Sinus tachycardia Ventricular premature complex Aberrant complex Borderline T wave abnormalities Electronically Signed On 07-03-2024 16:41:29 PST by Adam Red Please click the below link to view image of tracing.
== END 2024-06-29 13:58 | disposition home or self-care (01) | DRG 710 ==
LOC: ER 04:16 → OVERFLOW 06:45 → EAST 16:50
PROVIDERS: ADMIT Hospitalist; ATTEND Hospitalist
PROC: 0QBP0ZZ Excision of Left Metatarsal, Open Approach (ICD-10-PCS; 2024-06-28)
PROC: 0YBN0ZZ Excision of Left Foot, Open Approach (ICD-10-PCS; principal; 2024-06-28 11:48)
DX: A41.9 Sepsis, unspecified organism (principal); E11.40 Type 2 diabetes mellitus with diabetic neuropathy, unspecified; L97.509 Non-pressure chronic ulcer of other part of unspecified foot with unspecified severity; L03.116 Cellulitis of left lower limb; E11.621 Type 2 diabetes mellitus with foot ulcer; E87.1 Hypo-osmolality and hyponatremia; K31.84 Gastroparesis; D64.9 Anemia, unspecified; E11.43 Type 2 diabetes mellitus with diabetic autonomic (poly)neuropathy; E87.6 Hypokalemia; E11.65 Type 2 diabetes mellitus with hyperglycemia; D75.839 Thrombocytosis, unspecified; E78.2 Mixed hyperlipidemia; M77.42 Metatarsalgia, left foot
CPT/HCPCS: 36415; 71275; 73590; 73620; 73700; 80053; 80202; 82962; 83036; 83605; 83735; 85025; 85379; 85610; 85730; 87040; 93005; 93971; 96361; 96365; 96367; 97110; 97116; 97163; 99291; G0378; J1100; J1815; J1885; J2003; J2405; J2704